=== PATIENT | female | born 1945 | race Caucasian/White ===

== ENCOUNTER 2019-03-04 11:25 | Day surgery (SDC) | payer OTHER ==
[2019-03-01 15:33] VITALS: BMI 25.8
[2019-03-04] MEDS ORDERED: Heparin 5,000 UNITS/ML VIAL ONE (12:08)
[2019-03-04] MEDS ORDERED: PROPOFOL 200 MG/20 ML VIAL ONE (13:17)
[2019-03-04] MEDS ORDERED: Lidocaine 1% PF 5 ML VIAL ONE (13:17)
[2019-03-04] MEDS ORDERED: Ondansetron PF 4 MG/2 ML Vial ONE (13:17)
[2019-03-04] MEDS ORDERED: Dexamethasone 20 MG/5 ML VIAL ONE (13:17)
[2019-03-04] MEDS ORDERED: ePHEDrine 50 MG/ML VIAL ONE (13:17)
[2019-03-04] MEDS ORDERED: PHENYLEPHRINE-NS 100 MCG/ML 10 ML SYRINGE ONE (13:17)
[2019-03-04] MEDS ORDERED: Bupivacaine/Epinephrine 0.25% 30 ML VIAL ONE (14:22)
[2019-03-04] MEDS ORDERED: Fentanyl 100 MCG/2 ML VIAL ONE (14:27)
--- NOTE | 2019-03-05 00:12 | OP ---
DATE OF PROCEDURE: 03/04/2019 PREOPERATIVE DIAGNOSES: 1. Massive weight loss. 2. Excess axillary skin. POSTOPERATIVE DIAGNOSES: 1. Massive weight loss. 2. Excess axillary skin. PROCEDURE PERFORMED: Excision of excess axillary skin. DESCRIPTION OF PROCEDURE: Following induction of adequate anesthesia, the patient was prepped and draped in usual sterile fashion in the supine position. The patient has been preoperatively marked with excess skin of her axilla being identified. This ellipse of skin that ended at the apex of her axilla was excised down to and including the underlying subcutaneous tissue. Dissection stayed above the deeper structures of the axilla and inferior to the lymphatic tissue. The field was copiously irrigated and inspected for meticulous hemostasis prior to closure with 2-0 PDS suture, 3-0 PDS suture, and 3-0 Prolene. Drain was placed prior to closure. Similar procedure was done on each side. Job ID: [id number]
== END 2019-03-04 19:30 | disposition home or self-care (01) ==
LOC: SDC 11:25
PROVIDERS: ATTEND Plastic Surgery
DX: L98.7 Excessive and redundant skin and subcutaneous tissue (principal); R63.4 Abnormal weight loss; Z68.25 Body mass index [BMI] 25.0-25.9, adult; Z79.1 Long term (current) use of non-steroidal anti-inflammatories (NSAID); Z79.899 Other long term (current) drug therapy
CPT/HCPCS: 88305; J0690; J1100; J1644; J2001; J2405; J2704; J3010; J3490